=== PATIENT | female | born 1980 | race Two or more races ===

== ENCOUNTER 2021-08-09 15:30 | Day surgery (SDC) | payer OTHER | END 2021-08-09 22:25 | disposition home or self-care (01) | LOC: CIR.AMB 15:30 | PROVIDERS: ATTEND Obstetrics & Gynecology | DX: O02.1 Missed abortion (principal); Z79.82 Long term (current) use of aspirin; K21.9 Gastro-esophageal reflux disease without esophagitis; Z20.822 Contact with and (suspected) exposure to COVID-19 ==